=== PATIENT | female | born 1940 ===

== ENCOUNTER 2018-09-02 08:07 | Day surgery (SDC) | payer MEDICARE ==
[2018-08-26 09:23] VITALS: BMI 26.6
[2018-09-02] MEDS ORDERED: Clindamycin 2% Vaginal Cream(40 gm) ONE (09:44)
[2018-09-02] MEDS ORDERED: Bupivacaine HCl 0.25% PF (10 ml) Inj ONE (09:44)
[2018-09-02] MEDS ORDERED: ceFAZolin 1 gm FROZEN Premix 1 GM/50 ML ML IVPB ONE (09:45)
[2018-09-02] MEDS ORDERED: Propofol 10 mg/ml Inj (20 ML) ONE (10:43)
[2018-09-02] MEDS ORDERED: Vasopressin 20 Units/ml Inj ONE (10:45)
[2018-09-02] MEDS ORDERED: Rocuronium 10 mg/ml (5 ml) ONE (10:52)
[2018-09-02] MEDS ORDERED: Neostigmine Methylsulfate 3mg/3ml Syringe IV ONE (12:03)
[2018-09-02] MEDS ORDERED: Lactated Ringer's 1,000 ML IV ONE (12:18)
--- NOTE | 2018-09-02 12:31 | PCM.SURG1 ---
Surgeon's Initial Post Op Note - Surgeon's Notes Surgeon: Dr. Lissy Fernando Marine Technician: Dr. Eugene Type of Anesthesia: General Endo Pre-Operative Diagnosis: Pelvic organ prolapse Operative Findings: Rectocele Stage III, atrophic vaginal epithelium, bilateral ureteral jets seen, periurethral white lesion noted Post-Operative Diagnosis: same Operation Performed: Posterior repair, cystoscopy, periurethral lesion biopsy Specimen/Specimens Removed: vaginal epithelium, periurethral lesion biopsy Estimated Blood Loss: EBL {In ML}: 50 Blood Products Given: N/A Drains Used: No Drains Post-Op Condition: Good Date of Surgery/Procedure: 09/02/18 Time of Surgery/Procedure: 10:55
[2018-09-02] MEDS: HYDROmorphone 0.5 mg/0.5 ml ISec IVP PRN ×2 (12:35→13:15)
[2018-09-02] MEDS ORDERED: HYDROmorphone 0.5 mg/0.5 ml ISec ONE (12:36)
[2018-09-02] MEDS ORDERED: Lactated Ringer's 1,000 ML IV SCH (12:45)
[2018-09-02 14:35] VITALS: BP 160/90; PULSE 93; RESP 18; TEMP 98; O2SAT 100
--- NOTE | 2018-09-02 22:53 | OP ---
PROCEDURE DATE: 09/02/2018 PREOPERATIVE DIAGNOSIS: Pelvic organ prolapse. POSTOPERATIVE DIAGNOSIS: Pelvic organ prolapse. INTRAOPERATIVE FINDINGS: Rectocele stage 3, atrophic vaginal epithelium, bilateral ureteral jets seen and periureteral right lesion noted. PROCEDURES PERFORMED: Posterior repair, cystoscopy, and periurethral lesion biopsy. SURGEON: Lissy Fernando MD OBSTETRICS GYNECOLOGY MD: Dr. Eugene. TYPE OF ANESTHESIA: General endotracheal. SPECIMENS REMOVED: Vaginal epithelium and periurethral lesion. ESTIMATED BLOOD LOSS: 50 mL. BLOOD PRODUCTS: None. DRAINS: None. POSTOPERATIVE CONDITION: Stable. ADDITIONAL COMMENTS: All lap counts and instrument counts were correct x2. DESCRIPTION OF PROCEDURE: After all relevant documentation was reviewed and signed by , the patient was taken back to the OR room. She was prepped and draped in the usual sterile fashion after being placed in lithotomy position. After insertion of the Lane catheter to drain the bladder, attention was then placed to the posterior wall of the vagina. The rectocele was then identified and grabbed with the use of two Allis clamps and with the use of Pitressin, hydrodissection was performed. A vertical midline incision was then made with the use of a scalpel and bilateral sides of the incision were then grabbed with the use of T clamps. The rectocele was then gently dissected off the vaginal epithelium until the entirety of the defect was reduced. Once the defect was completely reduced, rectovaginal fascia was then reapproximated with the use of 2-0 Vicryl until the entirety of the rectocele was completely reduced. The excess vaginal epithelium was then removed. The border of the perineum was then grabbed with the use of two Allis clamps in a triangular shape. The excess skin was then removed. The perineal body was then reinforced and the skin was reapproximated with the use of 2-0 Vicryl in a subcuticular fashion. Excellent hemostasis was noted. Attention was then placed to the cystoscopy portion of the procedure. The cystoscope was then introduced where the bladder was examined and noted to be intact. Bilateral ureteral jets were visualized and the bladder was then drained. The vaginal wall was then covered with the use of antibiotic ointment, and the patient was then awoken from general anesthesia and taken back to the recovery room in stable condition. Prior to finishing the procedure, the periurethral lesion that was noted was removed with the use of Metzenbaum scissors and a [id number] stitch was placed in order to create excellent hemostasis. Lissy Fernando MD
== END 2018-09-02 17:35 | disposition home or self-care (01) ==
LOC: C.SDS 08:07
PROVIDERS: ATTEND Obstetrics & Gynecology
DX: N81.3 Complete uterovaginal prolapse (principal); I10 Essential (primary) hypertension; E03.9 Hypothyroidism, unspecified; M06.9 Rheumatoid arthritis, unspecified
CPT/HCPCS: 52204; 57260; 88305; J0690; J1170; J2001; J2405; J2704; J2710; J3010; J7120